=== PATIENT | female | born 1935 | race African-American/Black ===

== ENCOUNTER 2017-06-28 11:00 | Inpatient (IN) | payer MEDICARE, MEDICAID ==
[~2017-06-28] VITALS: Ht 170.2 cm; Wt 59.0 kg
[2017-06-28 11:29] VITALS: BP 121/68
--- NOTE | 2017-06-28 12:34 | Diagnostic Imaging Report ---
Indication: Generalized weakness, multiple falls at home, head trauma Technique: spiral acquisitions obtained through the brain. Angled axial and coronal 5 x 5 mm slices were reconstructed. No IV contrast utilized. Radiation dose was minimized using automated exposure control Total dose length product 1309 mGycm. CTDIvol(s) 70 mGy Comparison: none FINDINGS: No acute hemorrhage or edema. No mass effect or midline shift. There is age-related enlargement of the ventricles and extra axial CSF spaces. There is periventricular deep white matter ischemic change. Normal garcia-white differentiation. Old bilateral basal ganglia lacunar infarcts are demonstrated. Visualized orbits are unremarkable. Visualized sinuses are unremarkable. Intact calvarium. The mastoids are clear IMPRESSION: Chronic and age-related changes. Negative for acute intracranial bleed or mass effect The CT scanner at [facility] is accredited by the [employer] and the scans are performed using protocols designed to limit radiation exposure to as low as reasonably achievable to attain images of sufficient resolution adequate for diagnostic evaluation
[2017-06-28 12:37] LABS: BASOPHILS % (AUTO) 1.4 % (0.0-2.0); EOSINOPHILS % (AUTO) 1.9 % (0.0-3.0); HEMATOCRIT 31.5 % (37.0-47.0); HEMOGLOBIN 9.9 G/DL (12.0-16.0); LYMPHOCYTES % (AUTO) 34.3 % (20.0-45.0); MEAN CORPUSCULAR VOLUME 89 FL (80-99); MONOCYTES % (AUTO) 7.3 % (1.0-10.0); NEUTROPHILS % (AUTO) 55.2 % (45.0-75.0); PLATELET COUNT 318 K/UL (150-450); RED BLOOD COUNT 3.56 M/UL (4.20-5.40); RED CELL DISTRIBUTION WIDTH 13.8 % (11.6-14.8); WHITE BLOOD COUNT 4.8 K/UL (4.8-10.8)
[2017-06-28 12:52] LABS: ANION GAP 6 mmol/L (5-15); BLOOD UREA NITROGEN 21 mg/dL (7-18); CALCIUM 8.2 MG/DL (8.5-10.1); CARBON DIOXIDE 30 MMOL/L (21-32); CHLORIDE 96 MMOL/L (98-107); CREATININE 0.9 MG/DL (0.55-1.30); POTASSIUM 3.8 MMOL/L (3.5-5.1); SODIUM 132 MMOL/L (136-145)
[2017-06-28 13:06] LABS: ALANINE AMINOTRANSFERASE 19 U/L (12-78); ALBUMIN 2.9 G/DL (3.4-5.0); ALBUMIN/GLOBULIN RATIO 0.9 (1.0-2.7); ALKALINE PHOSPHATASE 74 U/L (46-116); ASPARTATE AMINO TRANSFERASE 27 U/L (15-37); BILIRUBIN,TOTAL 0.3 MG/DL (0.2-1.0); CKMB 2.9 NG/ML (0.0-3.6); CREATINE KINASE 172 U/L (26-308)
[2017-06-28 13:50] VITALS: BP 116/56
[2017-06-28 14:12] LABS: APPEARANCE,URINE CLEAR; BILIRUBIN, URINE NEGATIVE (NEGATIVE); COLOR,URINE PALE YELLOW; GLUCOSE, URINE (UA) NEGATIVE (NEGATIVE); KETONES,URINE NEGATIVE (NEGATIVE); LEUKOCYTE ESTERASE ,URINE NEGATIVE (NEGATIVE); NITRITE,URINE NEGATIVE (NEGATIVE); PH,URINE 6 (4.5-8.0); PROTEIN,URINE NEGATIVE (NEGATIVE); UROBILINOGEN,URINE NORMAL MG/DL (0.0-1.0)
--- NOTE | 2017-06-28 15:23 | Emergency Room Report ---
History of Present Illness General Chief Complaint: Multiple Trauma/Fall Source: Patient, Family Member Present Illness HPI Patient is accompanied by her daughter and granddaughter. The patient has had a progressive decline over the past several months. She's had multiple falls. She has been missing her medications at home. The patient lives alone. The daughter states she does try to help care for her but she works and is unable to afford to get her home health nurse. She states that her mom has fallen several times. She states that her living situation is dangerous and that she is disabled. She states that she has no other option and that the primary care physician believes that she needs placement in a assisted facility he needs 24-hour observation and care. They state she is very forgetful. She is also had difficulty with constipation and has had a large amount of weight loss. She did undergo a full workup for colon cancer with a colonoscopy several months ago. Her primary care physician works at [facility] in [place]. Allergies: Coded Allergies: No Known Allergies (Unverified , 06/28/17) Patient History Past Medical History: see triage record, DM, dementia, other - Breast CA Social History: Denies: smoking, alcohol use, drug use Reviewed Nursing Documentation: PMH: Agreed, PSxH: Agreed Nursing Documentation-PMH Past Medical History: No History, Except For Hx Diabetes: Yes Hx Cancer: Yes - right breast CA (lumpectomy) History Of Psychiatric Problem: Yes - dementia Review of Systems All Other Systems: negative except mentioned in HPI Physical Exam Vital Signs Date Time Temp Pulse Resp B/P (MAP) Pulse Ox O2 Delivery O2 Flow Rate FiO2 06/28/17 11:08 98.2 76 18 121/68 100 Room Air Sp02 EP Interpretation: reviewed, normal General Appearance: no apparent distress, alert, GCS 15, non-toxic Head: normocephalic, atraumatic Eyes: bilateral eye normal inspection, bilateral eye PERRL ENT: hearing grossly normal, normal pharynx, no angioedema, normal voice Neck: full range of motion, supple/symm/no masses Respiratory: chest non-tender, lungs clear, normal breath sounds, speaking full sentences Cardiovascular #1: regular rate, rhythm, no edema Gastrointestinal: normal bowel sounds, non tender, soft, non-distended, no guarding, no rebound Rectal: deferred Musculoskeletal: back normal, normal range of motion, non-tender Neurologic: alert, responsive, motor strength/tone normal, sensory intact, speech normal, other - No focal deficits Psychiatric: mood/affect normal, no suicidal/homicidal ideation Skin: normal color, no rash, warm/dry, well hydrated Medical Decision Making Diagnostic Impression: Primary Impression: Gravely disabled Additional Impression: Dementia ER Course This patient is gravely disabled and her family is unable to care for her. She has dementia and is declining. She is forgetting to take her medications and is falling and unable to care for herself. She is being admitted for further evaluation and for possible placement in a assisted facility. I did not identify an emergency medical condition. The patient has a normal laboratory workup and CT of the head. Laboratory Tests Test 06/28/17 12:25 06/28/17 14:00 White Blood Count 4.8 K/UL (4.8-10.8) Red Blood Count 3.56 M/UL (4.20-5.40) L Hemoglobin 9.9 G/DL (12.0-16.0) L Hematocrit 31.5 % (37.0-47.0) L Mean Corpuscular Volume 89 FL (80-99) Mean Corpuscular Hemoglobin 27.9 PG (27.0-31.0) Mean Corpuscular Hemoglobin Concent 31.5 G/DL (32.0-36.0) L Red Cell Distribution Width 13.8 % (11.6-14.8) Platelet Count 318 K/UL (150-450) Mean Platelet Volume 5.9 FL (6.5-10.1) L Neutrophils (%) (Auto) 55.2 % (45.0-75.0) Lymphocytes (%) (Auto) 34.3 % (20.0-45.0) Monocytes (%) (Auto) 7.3 % (1.0-10.0) Eosinophils (%) (Auto) 1.9 % (0.0-3.0) Basophils (%) (Auto) 1.4 % (0.0-2.0) Sodium Level 132 MMOL/L (136-145) L Potassium Level 3.8 MMOL/L (3.5-5.1) Chloride Level 96 MMOL/L (98-107) L Carbon Dioxide Level 30 MMOL/L (21-32) Anion Gap 6 mmol/L (5-15) Blood Urea Nitrogen 21 mg/dL (7-18) H Creatinine 0.9 MG/DL (0.55-1.30) Estimate Glomerular Filtration Rate mL/min (>60) Glucose Level 118 MG/DL (74-106) H Lactic Acid Level 2.20 mmol/L (0.66-2.22) Calcium Level 8.2 MG/DL (8.5-10.1) L Total Bilirubin 0.3 MG/DL (0.2-1.0) Aspartate Amino Transferase (AST) 27 U/L (15-37) Alanine Aminotransferase (ALT) 19 U/L (12-78) Alkaline Phosphatase 74 U/L (46-116) Total Creatine Kinase 172 U/L (26-308) Creatine Kinase MB 2.9 NG/ML (0.0-3.6) Creatine Kinase MB Relative Index 1.6 Troponin I 0.017 ng/mL (0.000-0.056) Total Protein 6.2 G/DL (6.4-8.2) L Albumin 2.9 G/DL (3.4-5.0) L Globulin 3.3 g/dL Albumin/Globulin Ratio 0.9 (1.0-2.7) L Urine Color Pale yellow Urine Appearance Clear Urine pH 6 (4.5-8.0) Urine Specific [place] 1.005 (1.005-1.035) Urine Protein Negative (NEGATIVE) Urine Glucose (UA) Negative (NEGATIVE) Urine Ketones Negative (NEGATIVE) Urine Occult Blood Negative (NEGATIVE) Urine Nitrite Negative (NEGATIVE) Urine Bilirubin Negative (NEGATIVE) Urine Urobilinogen Normal MG/DL (0.0-1.0) Urine Leukocyte Esterase Negative (NEGATIVE) Microbiology Date/Time Source Procedure Growth Status 06/28/17 12:25 Nasal Nares Influenza Types A,B Antigen (VIANNEY) - Final Complete EKG Diagnostic Results Rate: normal Rhythm: NSR ST Segments: no acute changes Rhythm Strip Diag. Results EP Interpretation: yes Rate: 60's Rhythm: NSR, no PVC's, no ectopy Chest X-Ray Diagnostic Results Chest X-Ray Diagnostic Results : Indication: Other Last Vital Signs Date Time Temp Pulse Resp B/P (MAP) Pulse Ox O2 Delivery O2 Flow Rate FiO2 06/28/17 13:50 98.2 87 20 116/56 100 Room Air Disposition: ADMITTED INPATIENT Condition: Stable Referrals: NON PHYSICIAN (PCP) MICHAEL ROBERTS D.O. Jun 28, 2017 15:23
[2017-06-28] MEDS ORDERED: Morphine Sulfate 2mg/ml Inj IVP PRN (15:30)
[2017-06-28] MEDS ORDERED: Mylanta II UD 30ml ORAL PRN (15:30)
[2017-06-28] MEDS ORDERED: COLACE100 MG ORAL (16:03)
[2017-06-28] MEDS ORDERED: TRAMADOL HCL50 MG ORAL (16:03)
[2017-06-28] MEDS ORDERED: FUMARATE (16:03)
[2017-06-28] MEDS ORDERED: [UNRECOGNIZED DRUG - OTHER] MC (16:03)
[2017-06-28] MEDS ORDERED: METFORMIN HCL1000 M1 ORAL (16:03)
[2017-06-28] MEDS ORDERED: FAMOTIDINE20 MG ORAL (16:03)
[2017-06-28] MEDS ORDERED: ACTOS30 MG ORAL (16:03)
[2017-06-28] MEDS ORDERED: ALLOPURINOL300 M1 ORAL (16:03)
[2017-06-28 16:23] VITALS: BP 118/61
[2017-06-28 18:43] VITALS: BP 117/69
--- NOTE | 2017-06-28 19:04 | Consultation ---
History of Present Illness General Date patient seen: Jun 28, 2017 Chief Complaint: Multiple Trauma/Fall Reason for Consultation: inpatient management Present Illness HPI 81 year old female with hx of DM and gout presented to ER accompanied by her daughter with cc of progressive decline over the past several months. She's had multiple falls. She has been missing her medications at home. The daughter states she does try to help care for her but she works and is unable to afford to get her home health nurse. She states that her mom has fallen several times. She states that her living situation is dangerous and that she is disabled. She states that she has no other option and that the primary care physician believes that she needs placement in a [facility] facility he needs 24-hour observation and care. She has constipation and has had a large amount of weight loss. She did undergo a full workup for colon cancer with a colonoscopy several months ago. She is admitted for evaluation of rapid decline. Allergies: Coded Allergies: No Known Allergies (Unverified , 06/28/17) Medication History Scheduled Allopurinol* (Allopurinol*), 300 MG ORAL DAILY, (Reported) Docusate Sodium* (Colace*), 100 MG ORAL DAILY, (Reported) Famotidine (Famotidine), 20 MG ORAL TWICE A DAY, (Reported) Metformin Hcl* (Metformin Hcl*), 1,000 MG ORAL BID, (Reported) Pioglitazone Hcl* (Actos*), 30 MG ORAL DAILY, (Reported) Scheduled PRN Tramadol Hcl* (Ultram*), 50 MG ORAL Q6H PRN for For Pain, (Reported) Miscellaneous Medications Oxybenzone (Oxybenzone), 5 GM MC, (Reported) [fumarate], (Reported) Patient History Healthcare decision maker N Resuscitation status Full Code Advanced Directive on File Past Medical/Surgical History Past Medical/Surgical History: (1) Diabetes mellitus (2) Gout Review of Systems All Other Systems: negative except mentioned in HPI Physical Exam General Appearance: cachetic Lines, tubes and drains: peripheral HEENT: normocephalic, atraumatic Neck: non-tender, normal alignment Respiratory/Chest: chest wall non-tender, lungs clear Breasts: no masses Cardiovascular/Chest: normal peripheral pulses, normal rate Abdomen: non tender Genitourinary/Rectal: normal genital exam Extremities: normal range of motion Skin Exam: normal pigmentation 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 Last 24 Hour Vital Signs Date Time Temp Pulse Resp B/P (MAP) Pulse Ox O2 Delivery O2 Flow Rate FiO2 06/28/17 18:43 Room Air 06/28/17 18:43 97.7 82 20 117/69 98 06/28/17 16:41 98.2 78 20 118/61 100 Room Air 06/28/17 16:23 98.2 78 20 118/61 100 Room Air 06/28/17 13:50 98.2 87 20 116/56 100 Room Air 06/28/17 11:29 98.2 76 18 121/68 100 Room Air 06/28/17 11:08 98.2 76 18 121/68 100 Room Air Laboratory Tests Test 06/28/17 12:25 06/28/17 14:00 White Blood Count 4.8 K/UL (4.8-10.8) Red Blood Count 3.56 M/UL (4.20-5.40) L Hemoglobin 9.9 G/DL (12.0-16.0) L Hematocrit 31.5 % (37.0-47.0) L Mean Corpuscular Volume 89 FL (80-99) Mean Corpuscular Hemoglobin 27.9 PG (27.0-31.0) Mean Corpuscular Hemoglobin Concent 31.5 G/DL (32.0-36.0) L Red Cell Distribution Width 13.8 % (11.6-14.8) Platelet Count 318 K/UL (150-450) Mean Platelet Volume 5.9 FL (6.5-10.1) L Neutrophils (%) (Auto) 55.2 % (45.0-75.0) Lymphocytes (%) (Auto) 34.3 % (20.0-45.0) Monocytes (%) (Auto) 7.3 % (1.0-10.0) Eosinophils (%) (Auto) 1.9 % (0.0-3.0) Basophils (%) (Auto) 1.4 % (0.0-2.0) Sodium Level 132 MMOL/L (136-145) L Potassium Level 3.8 MMOL/L (3.5-5.1) Chloride Level 96 MMOL/L (98-107) L Carbon Dioxide Level 30 MMOL/L (21-32) Anion Gap 6 mmol/L (5-15) Blood Urea Nitrogen 21 mg/dL (7-18) H Creatinine 0.9 MG/DL (0.55-1.30) Estimat Glomerular Filtration Rate mL/min (>60) Glucose Level 118 MG/DL (74-106) H Lactic Acid Level 2.20 mmol/L (0.66-2.22) Calcium Level 8.2 MG/DL (8.5-10.1) L Total Bilirubin 0.3 MG/DL (0.2-1.0) Aspartate Amino Transf (AST/SGOT) 27 U/L (15-37) Alanine Aminotransferase (ALT/SGPT) 19 U/L (12-78) Alkaline Phosphatase 74 U/L (46-116) Total Creatine Kinase 172 U/L (26-308) Creatine Kinase MB 2.9 NG/ML (0.0-3.6) Creatine Kinase MB Relative Index 1.6 Troponin I 0.017 ng/mL (0.000-0.056) Total Protein 6.2 G/DL (6.4-8.2) L Albumin 2.9 G/DL (3.4-5.0) L Globulin 3.3 g/dL Albumin/Globulin Ratio 0.9 (1.0-2.7) L Urine Color Pale yellow Urine Appearance Clear Urine pH 6 (4.5-8.0) Urine Specific [place] 1.005 (1.005-1.035) Urine Protein Negative (NEGATIVE) Urine Glucose (UA) Negative (NEGATIVE) Urine Ketones Negative (NEGATIVE) Urine Occult Blood Negative (NEGATIVE) Urine Nitrite Negative (NEGATIVE) Urine Bilirubin Negative (NEGATIVE) Urine Urobilinogen Normal MG/DL (0.0-1.0) Urine Leukocyte Esterase Negative (NEGATIVE) Microbiology Date/Time Source Procedure Growth Status 06/28/17 12:25 Nasal Nares Influenza Types A,B Antigen (VIANNEY) - Final Complete Height (Feet): 5 Height (Inches): 7.00 Weight (Pounds): 130 Medications Current Medications Medications (Trade) Dose Ordered Sig/Priyanka Route PRN Reason Start Time Stop Time Status Last Admin Dose Admin Acetaminophen (Tylenol) 650 mg Q4H PRN ORAL fever 06/28/17 15:30 07/28/17 15:29 Al Hydroxide/Mg Hydroxide (Mylanta II) 30 ml Q6H PRN ORAL dyspepsia 06/28/17 15:30 07/28/17 15:29 Allopurinol (Allopurinol) 300 mg DAILY ORAL 06/29/17 09:00 07/29/17 08:59 Dextrose (Dextrose 50%) STAT PRN IV Hypoglycemia 06/28/17 15:30 07/28/17 15:29 Docusate Sodium (Colace) 100 mg DAILY ORAL 06/29/17 09:00 07/29/17 08:59 Famotidine (Pepcid) 20 mg BID ORAL 06/29/17 09:00 07/29/17 08:59 Heparin Sodium (Porcine) (Heparin 5000 units/ml) 5,000 units EVERY 12 HOURS SUBQ 06/28/17 21:00 07/28/17 20:59 Lorazepam (Ativan 2mg/ml 1ml) 0.5 mg Q4H PRN IV For Anxiety 06/28/17 15:30 07/05/17 15:29 Morphine Sulfate (Morphine Sulfate) 1 mg Q4H PRN IVP Severe Pain (Pain Scale 7-10) 06/28/17 15:30 07/05/17 15:29 Ondansetron HCl (Zofran) 4 mg Q6H PRN IVP Nausea & Vomiting 06/28/17 15:30 07/28/17 15:29 Pioglitazone HCl (Actos) 30 mg ACBREAKFAST ORAL 06/29/17 06:30 07/29/17 06:29 Pneumococcal Polyvalent Vaccine (Pneumovax) 0.5 ml ONCE ONCE IM 06/28/17 20:30 06/28/17 20:31 UNV Polyethylene Glycol (Miralax) 17 gm HSPRN PRN ORAL Constipation 06/28/17 21:00 07/28/17 20:59 Zolpidem Tartrate (Ambien) 5 mg HSPRN PRN ORAL Insomnia 06/28/17 21:00 07/05/17 20:59 Assessment/Plan Problem List: (1) Failure to thrive SNOMED: 65686523 (2) Severe protein-calorie malnutrition ICD Codes: E43 - Unspecified severe protein-calorie malnutrition SNOMED: 570513087 (3) Dementia ICD Codes: F03.90 - Unspecified dementia without behavioral disturbance SNOMED: 11253542 (4) Diabetes mellitus ICD Codes: E11.9 - Type 2 diabetes mellitus without complications SNOMED: 43806399 (5) Gout ICD Codes: M10.9 - Gout, unspecified SNOMED: 42454370 Assessment/Plan neuro evaluation psych evaluation calorie count social service evaluation dvt prophylaxis pt/ot JULIANN RIOJAS Jun 28, 2017 19:04
[2017-06-28 20:06] VITALS: BP 118/70
[2017-06-28] MEDS ORDERED: Miralax 17gm pkt ORAL PRN (21:00)
[2017-06-28] MEDS: NovoLOG Insulin Flexpen SUBQ SCH (21:00)
[2017-06-28] MEDS ORDERED: Zolpidem 5mg tab ORAL PRN (21:00)
[2017-06-28] MEDS ORDERED: Pneumococcal Vaccine 25mcg/0.5ml IM ONE (21:00)
[2017-06-28] MEDS: Heparin 5000 units/ml inj SUBQ SCH (22:05)
[2017-06-29 00:51] VITALS: BP 120/71
[2017-06-29 04:00] VITALS: BP 112/54
[2017-06-29] MEDS: NovoLOG Insulin Flexpen SUBQ SCH ×4 (06:03→20:48)
[2017-06-29 07:37] LABS: BASOPHILS % (AUTO) 1.1 % (0.0-2.0); EOSINOPHILS % (AUTO) 2.5 % (0.0-3.0); HEMATOCRIT 31.8 % (37.0-47.0); HEMOGLOBIN 9.9 G/DL (12.0-16.0); LYMPHOCYTES % (AUTO) 22.6 % (20.0-45.0); MEAN CORPUSCULAR VOLUME 90 FL (80-99); MONOCYTES % (AUTO) 7.5 % (1.0-10.0); NEUTROPHILS % (AUTO) 66.4 % (45.0-75.0); PLATELET COUNT 312 K/UL (150-450); RED BLOOD COUNT 3.54 M/UL (4.20-5.40); RED CELL DISTRIBUTION WIDTH 14.1 % (11.6-14.8)
[2017-06-29 08:00] VITALS: BP 128/72
[2017-06-29 08:23] LABS: ALANINE AMINOTRANSFERASE 20 U/L (12-78); ALBUMIN 2.7 G/DL (3.4-5.0); ALBUMIN/GLOBULIN RATIO 0.9 (1.0-2.7); ALKALINE PHOSPHATASE 78 U/L (46-116); ANION GAP 6 mmol/L (5-15); ASPARTATE AMINO TRANSFERASE 23 U/L (15-37); BILIRUBIN,TOTAL 0.3 MG/DL (0.2-1.0); BLOOD UREA NITROGEN 20 mg/dL (7-18); CALCIUM 7.8 MG/DL (8.5-10.1); CARBON DIOXIDE 30 MMOL/L (21-32); CHLORIDE 99 MMOL/L (98-107); CHOLESTEROL 137 MG/DL (< 200); CREATININE 0.7 MG/DL (0.55-1.30); HDL CHOLESTEROL 64 MG/DL (40-60); POTASSIUM 3.3 MMOL/L (3.5-5.1); SODIUM 135 MMOL/L (136-145); TRIGLYCERIDES 43 MG/DL (30-150)
[2017-06-29] MEDS: Docusate 100mg cap ORAL SCH (10:11)
[2017-06-29] MEDS: Heparin 5000 units/ml inj SUBQ SCH ×2 (10:12→20:49)
[2017-06-29] MEDS: LORazepam Inj 2mg/ml 1ml IV PRN (10:54)
--- NOTE | 2017-06-29 11:07 | Consultation ---
Consult Note Consult Note job#[id number] Oneal Schmitz M.D. Jun 29, 2017 11:07
[2017-06-29 11:36] VITALS: BP 112/60
--- NOTE | 2017-06-29 12:38 | Neurology Progress Note ---
Objective Physical Exam Last Vital Signs Date Time Temp Pulse Resp B/P (MAP) Pulse Ox O2 Delivery O2 Flow Rate FiO2 06/29/17 11:36 97.3 70 20 112/60 98 06/29/17 08:00 Room Air Laboratory Tests Test 06/28/17 14:00 06/29/17 06:10 Urine Color Pale yellow Urine Appearance Clear Urine pH 6 (4.5-8.0) Urine Specific [place] 1.005 (1.005-1.035) Urine Protein Negative (NEGATIVE) Urine Glucose (UA) Negative (NEGATIVE) Urine Ketones Negative (NEGATIVE) Urine Occult Blood Negative (NEGATIVE) Urine Nitrite Negative (NEGATIVE) Urine Bilirubin Negative (NEGATIVE) Urine Urobilinogen Normal MG/DL (0.0-1.0) Urine Leukocyte Esterase Negative (NEGATIVE) White Blood Count 4.0 K/UL (4.8-10.8) L Red Blood Count 3.54 M/UL (4.20-5.40) L Hemoglobin 9.9 G/DL (12.0-16.0) L Hematocrit 31.8 % (37.0-47.0) L Mean Corpuscular Volume 90 FL (80-99) Mean Corpuscular Hemoglobin 28.0 PG (27.0-31.0) Mean Corpuscular Hemoglobin Concent 31.2 G/DL (32.0-36.0) L Red Cell Distribution Width 14.1 % (11.6-14.8) Platelet Count 312 K/UL (150-450) Mean Platelet Volume 5.6 FL (6.5-10.1) L Neutrophils (%) (Auto) 66.4 % (45.0-75.0) Lymphocytes (%) (Auto) 22.6 % (20.0-45.0) Monocytes (%) (Auto) 7.5 % (1.0-10.0) Eosinophils (%) (Auto) 2.5 % (0.0-3.0) Basophils (%) (Auto) 1.1 % (0.0-2.0) Sodium Level 135 MMOL/L (136-145) L Potassium Level 3.3 MMOL/L (3.5-5.1) L Chloride Level 99 MMOL/L (98-107) Carbon Dioxide Level 30 MMOL/L (21-32) Anion Gap 6 mmol/L (5-15) Blood Urea Nitrogen 20 mg/dL (7-18) H Creatinine 0.7 MG/DL (0.55-1.30) Estimat Glomerular Filtration Rate mL/min (>60) Glucose Level 169 MG/DL (74-106) H Hemoglobin A1c 6.0 % (4.3-6.0) Calcium Level 7.8 MG/DL (8.5-10.1) L Total Bilirubin 0.3 MG/DL (0.2-1.0) Aspartate Amino Transf (AST/SGOT) 23 U/L (15-37) Alanine Aminotransferase (ALT/SGPT) 20 U/L (12-78) Alkaline Phosphatase 78 U/L (46-116) Total Protein 5.8 G/DL (6.4-8.2) L Albumin 2.7 G/DL (3.4-5.0) L Globulin 3.1 g/dL Albumin/Globulin Ratio 0.9 (1.0-2.7) L Triglycerides Level 43 MG/DL (30-150) Cholesterol Level 137 MG/DL (< 200) LDL Cholesterol 69 mg/dL (<100) HDL Cholesterol 64 MG/DL (40-60) H Cholesterol/HDL Ratio 2.1 (3.3-4.4) L Thyroid Stimulating Hormone (TSH) 3.959 uiU/mL (0.358-3.740) Impression/Recommendations Recommendations #[id number] MADDISON DUFFY Jun 29, 2017 12:38
--- NOTE | 2017-06-29 15:45 | Consultation ---
DATE OF CONSULTATION: 06/28/2017 PSYCHIATRIC CONSULTATION CONSULTING PHYSICIAN: Oneal Schmitz M.D. ATTENDING PHYSICIAN: Andrade Calloway D.O. HISTORY OF PRESENT ILLNESS: The patient is an 81-year-old female with a history of dementia, agitation, and mood disorder, who has been admitted to the hospital for multiple trauma status post fall. The patient is yelling, screaming, agitated, not following direction. She is also paranoid. She is confused and is unable to provide any history. She is only yelling and at times 00:39. The patient is having impairment in concentration, memory, and attention. No insight or judgment. PAST PSYCHIATRIC HISTORY: The patient has a history of dementia, mood disorder. Agitation has been treated with antipsychotics in the past as well as Ativan. MEDICAL HISTORY: She has a history of right breast cancer with lumpectomy. ALLERGIES: No known drug allergies. SUBSTANCE ABUSE HISTORY: No known history of illicit drug use or alcohol. MENTAL STATUS EXAMINATION: The patient is alert and oriented times self and is not able to provide any history, not engaged, and uncooperative. There is psychomotor agitation. She is loud and screaming. Mood is angry. Affect is blunted, congruent with mood. Thought process is disorganized. Thought content positive for delusions. Insight and judgment nonexistent. ASSESSMENT: AXIS I Dementia with behavioral disturbance and agitation. AXIS II Deferred. AXIS III Failure to thrive and grave disability. PLAN: 1. The patient will be started on Depakote 500 mg b.i.d., which also stimulates her appetite as well as assists her mood disorder and agitation. 2. We will have the Ativan IV for breakthrough agitation. Oneal Schmitz M.D. DR: LANCE JOB#: [id number] CC:
[2017-06-29 16:00] VITALS: BP 119/64
--- NOTE | 2017-06-29 19:30 | Consultation ---
DATE OF CONSULTATION: 06/29/2017 NEUROLOGICAL CONSULTATION CONSULTING PHYSICIAN: Chacorta Coats M.D. ATTENDING/REQUESTING PHYSICIAN: Andrade Calloway D.O. HISTORY OF PRESENT ILLNESS: This is an 81-year-old female seen in neurological consultation to evaluate the presence of cognitive loss, abnormal gait. The patient is not sure why she is in the hospital. Information was obtained from medical records. Note that she was brought to emergency room by her daughter and granddaughters, who described the patient having progressive cognitive and physical decline in the last few months, developed unsteady gait, and had multiple falls while using walker. She also described as missing her medications at home. She became quite forgetful. In addition, she developed weight loss, complaining of constipation. Recent workup for colon CA with colonoscopy revealed no malignancies. Her workup was performed at [facility]. On arrival, vital signs were stable. She was afebrile. Her EKG with normal sinus rhythm. No PVCs. No ectopies. Her imaging studies included CT scan of the brain, which revealed old bilateral basal ganglia lacunar infarcts, evidence of chronic and age-related changes. Laboratory work revealed mild anemia, hemoglobin 9.9 and hematocrit 31.5. Chemistry panel with sodium 132, blood sugar 118, low total protein of 6.2, and albumin 2.9. Unremarkable lipid panel but TSH of 3.959. Urinalysis was normal. Following admission to [facility], her condition remained essentially unchanged. PAST MEDICAL HISTORY: History of diabetes, she had lumpectomy for right breast cancer, arthritis and using walker. MEDICATIONS: Her treatment prior to admission included allopurinol, famotidine, metformin, oxybenzone, Actos, and Ultram. ALLERGIES: None reported. FAMILY HISTORY: Noncontributory. SOCIAL HISTORY: The patient apparently lives until present alone but obviously represented a danger to herself and was unable to take care of herself. PHYSICAL EXAMINATION: GENERAL: A well-developed, somewhat cachectic, elderly female, found to be lying in bed, comfortably. VITAL SIGNS: Stable. Blood pressure 112/60 and temperature 97.3. HEAD: Normocephalic. No evidence of trauma. Eyes, ears, nose, and throat are clear. NECK: Supple. No meningeal signs. MUSCULOSKELETAL: Unremarkable. No deformities except some arthritic changes in both knees. Peripheral pulses 1+, symmetric. MENTAL STATUS: The patient is alert and oriented to her name and age, but not time and place. She was able to recall names of her children, her address. She was able to recall only 1 out of 3 words in 3 minutes, unable to recall the name of the President of [employer] currently. She was pleasant, cooperative, and followed command. CRANIAL NERVE II: Pupils both responding to light and accommodation. Extraocular movements intact. No nystagmus. CRANIAL NERVE V: Normal corneal responses. CRANIAL NERVE VII: No facial asymmetry. CRANIAL NERVE VIII: Decreased hearing bilaterally. CRANIAL NERVES IX THROUGH XII: Tongue is in midline. Symmetric palate elevation. MOTOR: Revealed normal muscle tone. Strength appears normal, 5/5. She was able to lift arms and legs against gravity. Deep tendon reflexes 1+, bilaterally symmetric. Plantar responses flexor. SENSORY: Normal to pinprick and light touch. Gait not tested but reported by the personnel as being able to ambulate slowly using walker. IMPRESSION: 1. 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 2. Failure to thrive. 3. Diabetes type 2. 4. History of breast cancer. RECOMMENDATION: The patient is not capable of staying alone in her apartment. She represents a danger to herself being unable to provide with all activities of daily living, combined with abnormal judgment, cognitive loss. It is appropriate for the patient to be placed to nursing facility for [id number] care. In presence of previous strokes, the patient to start on aspirin 81 mg daily. Maintain proper blood sugar control and start on appropriate nutrition. Thank you for allowing me to see this interesting patient in neurological consultation. Chacorta Coats M.D. DR: SIM JOB#: [id number] CC:
[2017-06-29 20:00] VITALS: BP 108/63
--- NOTE | 2017-06-29 20:25 | Pulmonology Progress Note ---
Assessment/Plan Problems: (1) Failure to thrive (2) Severe protein-calorie malnutrition (3) Dementia (4) Diabetes mellitus (5) Gout Assessment/Plan all noted' psych and neuro consult appreciated pt/ot evaluation sliding scale check electrolytes symptomatic treatment. Subjective ROS Limited/Unobtainable: No Interval Events: no new complains, Allergies: Coded Allergies: No Known Allergies (Unverified , 06/28/17) Objective Last 24 Hour Vital Signs Date Time Temp Pulse Resp B/P (MAP) Pulse Ox O2 Delivery O2 Flow Rate FiO2 06/29/17 16:00 97.6 71 20 119/64 97 06/29/17 11:36 97.3 70 20 112/60 98 06/29/17 08:00 97.8 78 20 128/72 100 Room Air 06/29/17 04:00 96 Room Air 06/29/17 04:00 98.2 74 20 112/54 96 Room Air 06/29/17 01:11 100 Room Air 06/29/17 00:51 97.3 78 20 120/71 100 Room Air Intake and Output 06/28/17 06/29/17 19:00 07:00 Intake Total 180 ml Balance 180 ml Intake Oral 180 ml # Voids 2 4 # Bowel Movements 1 1 Objective General Appearance: cachetic Lines, tubes and drains: peripheral HEENT: normocephalic, atraumatic Neck: non-tender, normal alignment Respiratory/Chest: chest wall non-tender, lungs clear Breasts: no masses Cardiovascular/Chest: normal peripheral pulses, normal rate Abdomen: non tender Genitourinary/Rectal: normal genital exam Extremities: normal range of motion Skin Exam: normal pigmentation 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 Microbiology Date/Time Source Procedure Growth Status 06/28/17 12:25 Nasal Nares Influenza Types A,B Antigen (VIANNEY) - Final Complete Laboratory Tests 06/29/17 06:10: White Blood Count 4.0L, Red Blood Count 3.54L, Hemoglobin 9.9L, Hematocrit 31.8L , Mean Corpuscular Volume 90, Mean Corpuscular Hemoglobin 28.0, Mean Corpuscular Hemoglobin Concent 31.2L, Red Cell Distribution Width 14.1, Platelet Count 312, Mean Platelet Volume 5.6L, Neutrophils (%) (Auto) 66.4, Lymphocytes (%) (Auto) 22.6, Monocytes (%) (Auto) 7.5, Eosinophils (%) (Auto) 2.5, Basophils (%) (Auto) 1.1, Sodium Level 135L, Potassium Level 3.3L, Chloride Level 99, Carbon Dioxide Level 30, Anion Gap 6, Blood Urea Nitrogen 20H , Creatinine 0.7, Estimat Glomerular Filtration Rate , Glucose Level 169H, Hemoglobin A1c 6.0, Calcium Level 7.8L, Total Bilirubin 0.3, Aspartate Amino Transf (AST/SGOT) 23, Alanine Aminotransferase (ALT/SGPT) 20, Alkaline Phosphatase 78, Total Protein 5.8L, Albumin 2.7L, Globulin 3.1, Albumin/ Globulin Ratio 0.9L, Triglycerides Level 43, Cholesterol Level 137, LDL Cholesterol 69, HDL Cholesterol 64H, Cholesterol/HDL Ratio 2.1L, Thyroid Stimulating Hormone (TSH) 3.959H Current Medications Medications (Trade) Dose Ordered Sig/Priyanka Route PRN Reason Start Time Stop Time Status Last Admin Dose Admin Acetaminophen (Tylenol) 650 mg Q4H PRN ORAL fever 06/28/17 15:30 07/28/17 15:29 Al Hydroxide/Mg Hydroxide (Mylanta II) 30 ml Q6H PRN ORAL dyspepsia 06/28/17 15:30 07/28/17 15:29 Allopurinol (Allopurinol) 300 mg DAILY ORAL 06/29/17 09:00 07/29/17 08:59 Dextrose (Dextrose 50%) STAT PRN IV Hypoglycemia 06/28/17 20:30 07/28/17 20:29 Divalproex Sodium (Depakote) 500 mg EVERY 12 HOURS ORAL 06/29/17 21:00 07/29/17 20:59 Docusate Sodium (Colace) 100 mg DAILY ORAL 06/29/17 09:00 07/29/17 08:59 06/29/17 10:11 Famotidine (Pepcid) 20 mg BID ORAL 06/29/17 09:00 07/29/17 08:59 06/29/17 18:31 Heparin Sodium (Porcine) (Heparin 5000 units/ml) 5,000 units EVERY 12 HOURS SUBQ 06/28/17 21:00 07/28/17 20:59 06/29/17 10:12 Insulin Aspart (NovoLOG) BEFORE MEALS AND HS SUBQ 06/28/17 21:00 07/28/17 20:59 Lorazepam (Ativan 2mg/ml 1ml) 0.5 mg Q4H PRN IV For Anxiety 06/28/17 15:30 07/05/17 15:29 06/29/17 10:54 Morphine Sulfate (Morphine Sulfate) 1 mg Q4H PRN IVP Severe Pain (Pain Scale 7-10) 06/28/17 15:30 07/05/17 15:29 Ondansetron HCl (Zofran) 4 mg Q6H PRN IVP Nausea & Vomiting 06/28/17 15:30 07/28/17 15:29 Pioglitazone HCl (Actos) 30 mg ACBREAKFAST ORAL 06/29/17 06:30 07/29/17 06:29 Polyethylene Glycol (Miralax) 17 gm HSPRN PRN ORAL Constipation 06/28/17 21:00 07/28/17 20:59 Sodium Chloride 1,000 ml @ 50 mls/hr Q20H IV 06/29/17 16:00 07/29/17 15:59 06/29/17 16:50 Zolpidem Tartrate (Ambien) 5 mg HSPRN PRN ORAL Insomnia 06/28/17 21:00 07/05/17 20:59 JULIANN RIOJAS Jun 29, 2017 20:25
--- NOTE | 2017-06-29 20:30 | Progress Note ---
DATE: 06/29/2017 SUBJECTIVE: The patient continues to be yelling, agitated, and uncooperative with the staff. The patient is not following staff's directions. She is paranoid and makes nonsensical statements. MENTAL STATUS EXAMINATION: The patient is alert and oriented times self. Mood is agitated. Affect is constricted, congruent with mood. Thought process is concrete. Thought content, no suicidal or homicidal ideations. Positive for delusions. Insight and judgment are impaired. Cognition is impaired. ASSESSMENT: Dementia with behavior disturbance, rule out mood disorder. PLAN: 1. We will continue the Depakote p.o. 500 mg b.i.d. 2. Ativan IV. 3. Provide the patient with supportive therapy and reality orientation. Oneal Schmitz M.D. DR: TABITHA JOB#: [id number] CC:
[2017-06-29] MEDS: Depakote 500mg tab ORAL SCH (20:48)
--- NOTE | 2017-06-29 23:30 | History and Physical Report ---
DATE OF ADMISSION: 06/28/2017 TIME SEEN: At 2 p.m. CONSULTANTS: 1. Chacorta Coats M.D. 2. Nolan Cole M.D. 3. Tashi Trivedi M.D. CHIEF COMPLAINT: Failure to thrive, weakness, fall, edema, and possible needing placement. BRIEF HISTORY: This is an 81-year-old female who lives at home by herself. Daughter brought her into [facility] for progressive weakness x2 weeks and failure to thrive. Also she is not able to care for her. Currently, calm in bed, slightly confused, not talking much. REVIEW OF SYSTEMS: Unavailable. PAST MEDICAL HISTORY: Includes failure to thrive, diabetes, edema, breast cancer, and frequent falls. PAST SURGICAL HISTORY: Breast surgery. MEDICATIONS: Include Depakote, K-Dur, allopurinol, Colace, Pepcid, Actos, Ambien, heparin, MiraLAX, NovoLog, Tylenol, morphine, Zofran, and Ativan. ALLERGIES: Denies. SOCIAL HISTORY: No smoking, no alcohol, and no intravenous drug abuse. FAMILY HISTORY: Noncontributory. PHYSICAL EXAMINATION: GENERAL: Calm in bed, oriented x2, in no acute distress. VITAL SIGNS: Temperature is 97, pulse , respirations 20, and blood pressure 112/60. CARDIOVASCULAR: No murmur. LUNGS: Distant and clear. ABDOMEN: Positive bowel sounds. Nontender. Nondistended. EXTREMITIES: No cyanosis, clubbing, or edema. NEUROLOGIC: The patient moves all extremities. Slightly weak. LABORATORY DATA: Labs at this time show hemoglobin 9.9, otherwise CBC is normal. Sodium 135, potassium 3.3, chloride , and glucose 169. Albumin 3.7. Urinalysis is negative. ASSESSMENT: 1. Failure to thrive. 2. Weakness. 3. Diabetes. 4. Malnutrition. 5. Frequent falls. 6. Anemia. 7. Edema. 8. Breast cancer. PLAN: 1. Continue previous medications. 2. OT, PT, and dietary followup. 3. Blood sugar control. 4. Resume home medications. 5. Dr. Coats, Dr. Cole, and Dr. Trivedi to consult. 6. CBC and BMP in the morning. Andrade Calloway D.O. DR: ANTOLIN JOB#: [id number] CC:
[2017-06-30] VITALS: BP 110/57
[2017-06-30 04:16] VITALS: BP 140/59
[2017-06-30] MEDS: NovoLOG Insulin Flexpen SUBQ SCH ×4 (05:49→20:36)
[2017-06-30 07:44] LABS: BASOPHILS % (AUTO) 1.4 % (0.0-2.0); EOSINOPHILS % (AUTO) 1.9 % (0.0-3.0); HEMATOCRIT 32.4 % (37.0-47.0); HEMOGLOBIN 10.5 G/DL (12.0-16.0); LYMPHOCYTES % (AUTO) 36.8 % (20.0-45.0); MEAN CORPUSCULAR VOLUME 89 FL (80-99); MONOCYTES % (AUTO) 9.2 % (1.0-10.0); NEUTROPHILS % (AUTO) 50.6 % (45.0-75.0); PLATELET COUNT 346 K/UL (150-450); RED BLOOD COUNT 3.64 M/UL (4.20-5.40); WHITE BLOOD COUNT 4.1 K/UL (4.8-10.8)
[2017-06-30 08:00] VITALS: BP 108/44
[2017-06-30 08:04] LABS: ANION GAP 5 mmol/L (5-15); BLOOD UREA NITROGEN 12 mg/dL (7-18); CALCIUM 8.5 MG/DL (8.5-10.1); CARBON DIOXIDE 29 MMOL/L (21-32); CHLORIDE 98 MMOL/L (98-107); CREATININE 0.6 MG/DL (0.55-1.30); POTASSIUM 4.2 MMOL/L (3.5-5.1); SODIUM 132 MMOL/L (136-145)
[2017-06-30] MEDS: Heparin 5000 units/ml inj SUBQ SCH ×2 (08:46→20:36)
[2017-06-30] MEDS: LORazepam Inj 2mg/ml 1ml IV PRN (08:47)
[2017-06-30] MEDS: Depakote 500mg tab ORAL SCH ×2 (08:48→20:35)
[2017-06-30] MEDS: Docusate 100mg cap ORAL SCH (08:48)
--- NOTE | 2017-06-30 09:24 | Pulmonology Progress Note ---
Assessment/Plan Assessment/Plan ASSESSMENT Functional decline mild dehydration recurrent falls protein calorie malnutrition dementia anemia DM hypokalemia hypomagnesemia R breast Ca, s/p lumpectomy Elevated TSH with normal free T 4 - subclinical hypothyroidism PLAN OF CARE MS floor gentle IVF neuro and psych eval CT head no acute IC pathology Fall precautions PT/OT/ST dietary eval, check pre-albumin calorie count BS management with Actos and SSI prn HgA1c -6.0 at goal Monitor HH, stable, with some trend up DVT/GI prophylaxis bowel regimen replace Mg CM to arrange SNF repeat thyroid panel in 4-6 weeks case discussed and evaluated by supervising physician Subjective Allergies: Coded Allergies: No Known Allergies (Unverified , 06/28/17) Subjective denies chest pain, SOB, no signs of distress confused Mg-1.2 Objective Last 24 Hour Vital Signs Date Time Temp Pulse Resp B/P (MAP) Pulse Ox O2 Delivery O2 Flow Rate FiO2 06/30/17 04:16 98 Room Air 06/30/17 04:16 97.8 72 18 140/59 98 Room Air 06/30/17 00:00 97.9 70 20 110/57 100 Room Air 06/29/17 20:00 98 Room Air 06/29/17 20:00 98.3 74 20 108/63 98 Room Air 06/29/17 16:00 97.6 71 20 119/64 97 06/29/17 11:36 97.3 70 20 112/60 98 Intake and Output 06/29/17 06/30/17 19:00 07:00 Intake Total 680 ml Output Total 300 ml Balance 680 ml -300 ml Intake Oral 580 ml IV Total 100 ml Output Urine Total 300 ml # Bowel Movements 2 3 General Appearance: no acute distress, other - thin elderly AA female in NAD HEENT: normocephalic, atraumatic, anicteric, mucous membranes moist Respiratory/Chest: lungs clear - with moderate air exchange Cardiovascular: normal peripheral pulses, normal rate, no JVD Neurologic/Psychiatric: abnormal gait, alert, responsive Musculoskeletal: atrophy - BLE Microbiology Date/Time Source Procedure Growth Status 06/28/17 12:25 Nasal Nares Influenza Types A,B Antigen (VIANNEY) - Final Complete Laboratory Tests 06/30/17 04:40: White Blood Count 4.1L, Red Blood Count 3.64L, Hemoglobin 10.5L, Hematocrit 32.4L, Mean Corpuscular Volume 89, Mean Corpuscular Hemoglobin 28.8, Mean Corpuscular Hemoglobin Concent 32.3, Red Cell Distribution Width 14.0, Platelet Count 346, Mean Platelet Volume 6.1L, Neutrophils (%) (Auto) 50.6, Lymphocytes ( %) (Auto) 36.8, Monocytes (%) (Auto) 9.2, Eosinophils (%) (Auto) 1.9, Basophils (%) (Auto) 1.4, Sodium Level 132L, Potassium Level 4.2, Chloride Level 98, Carbon Dioxide Level 29, Anion Gap 5, Blood Urea Nitrogen 12, Creatinine 0.6, Estimat Glomerular Filtration Rate , Glucose Level 96, Calcium Level 8.5, Magnesium Level 1.2L, Prealbumin [Pending], Free Thyroxine 1.16 Current Medications Medications (Trade) Dose Ordered Sig/Priyanka Route PRN Reason Start Time Stop Time Status Last Admin Dose Admin Acetaminophen (Tylenol) 650 mg Q4H PRN ORAL fever 06/28/17 15:30 07/28/17 15:29 Al Hydroxide/Mg Hydroxide (Mylanta II) 30 ml Q6H PRN ORAL dyspepsia 06/28/17 15:30 07/28/17 15:29 Allopurinol (Allopurinol) 300 mg DAILY ORAL 06/29/17 09:00 07/29/17 08:59 06/30/17 08:48 Dextrose (Dextrose 50%) STAT PRN IV Hypoglycemia 06/28/17 20:30 07/28/17 20:29 Divalproex Sodium (Depakote) 500 mg EVERY 12 HOURS ORAL 06/29/17 21:00 07/29/17 20:59 06/30/17 08:48 Docusate Sodium (Colace) 100 mg DAILY ORAL 06/29/17 09:00 07/29/17 08:59 06/30/17 08:48 Famotidine (Pepcid) 20 mg BID ORAL 06/29/17 09:00 07/29/17 08:59 06/30/17 08:48 Heparin Sodium (Porcine) (Heparin 5000 units/ml) 5,000 units EVERY 12 HOURS SUBQ 06/28/17 21:00 07/28/17 20:59 06/30/17 08:46 Insulin Aspart (NovoLOG) BEFORE MEALS AND HS SUBQ 06/28/17 21:00 07/28/17 20:59 Lorazepam (Ativan 2mg/ml 1ml) 0.5 mg Q4H PRN IV For Anxiety 06/28/17 15:30 07/05/17 15:29 06/30/17 08:47 Morphine Sulfate (Morphine Sulfate) 1 mg Q4H PRN IVP Severe Pain (Pain Scale 7-10) 06/28/17 15:30 07/05/17 15:29 Ondansetron HCl (Zofran) 4 mg Q6H PRN IVP Nausea & Vomiting 06/28/17 15:30 07/28/17 15:29 Pioglitazone HCl (Actos) 30 mg ACBREAKFAST ORAL 06/29/17 06:30 07/29/17 06:29 06/30/17 05:49 Polyethylene Glycol (Miralax) 17 gm HSPRN PRN ORAL Constipation 06/28/17 21:00 07/28/17 20:59 Sodium Chloride 1,000 ml @ 50 mls/hr Q20H IV 06/29/17 16:00 07/29/17 15:59 06/29/17 16:50 Zolpidem Tartrate (Ambien) 5 mg HSPRN PRN ORAL Insomnia 06/28/17 21:00 07/05/17 20:59 Mariana Mahajan NP (Vanchtein) Jun 30, 2017 09:24
[2017-06-30 12:00] VITALS: BP 120/60
--- NOTE | 2017-06-30 14:14 | General Progress Note ---
Assessment/Plan Problem List: (1) Dementia ICD Codes: F03.90 - Unspecified dementia without behavioral disturbance SNOMED: 38926804 (2) Gravely disabled SNOMED: 051766172 (3) Diabetes mellitus ICD Codes: E11.9 - Type 2 diabetes mellitus without complications SNOMED: 39662295 (4) Gout ICD Codes: M10.9 - Gout, unspecified SNOMED: 70328640 (5) Failure to thrive SNOMED: 25682219 (6) Severe protein-calorie malnutrition ICD Codes: E43 - Unspecified severe protein-calorie malnutrition SNOMED: 594879304 Status: stable, progressing, tolerating diet Assessment/Plan ot pt diet bs control cbc bmp am Subjective Constitutional: Reports: weakness Allergies: Coded Allergies: No Known Allergies (Unverified , 06/28/17) All Systems: reviewed and negative except above Subjective calm in b ed Objective Last 24 Hour Vital Signs Date Time Temp Pulse Resp B/P (MAP) Pulse Ox O2 Delivery O2 Flow Rate FiO2 06/30/17 12:00 97.6 68 20 120/60 94 06/30/17 08:00 97.7 73 19 108/44 98 Room Air 06/30/17 04:16 98 Room Air 06/30/17 04:16 97.8 72 18 140/59 98 Room Air 06/30/17 00:00 97.9 70 20 110/57 100 Room Air 06/29/17 20:00 98 Room Air 06/29/17 20:00 98.3 74 20 108/63 98 Room Air 06/29/17 16:00 97.6 71 20 119/64 97 Intake and Output 06/29/17 06/30/17 19:00 07:00 Intake Total 680 ml Output Total 300 ml Balance 680 ml -300 ml Intake Oral 580 ml IV Total 100 ml Output Urine Total 300 ml # Bowel Movements 2 3 Laboratory Tests 06/30/17 04:40: White Blood Count 4.1L, Red Blood Count 3.64L, Hemoglobin 10.5L, Hematocrit 32.4L, Mean Corpuscular Volume 89, Mean Corpuscular Hemoglobin 28.8, Mean Corpuscular Hemoglobin Concent 32.3, Red Cell Distribution Width 14.0, Platelet Count 346, Mean Platelet Volume 6.1L, Neutrophils (%) (Auto) 50.6, Lymphocytes ( %) (Auto) 36.8, Monocytes (%) (Auto) 9.2, Eosinophils (%) (Auto) 1.9, Basophils (%) (Auto) 1.4, Sodium Level 132L, Potassium Level 4.2, Chloride Level 98, Carbon Dioxide Level 29, Anion Gap 5, Blood Urea Nitrogen 12, Creatinine 0.6, Estimat Glomerular Filtration Rate , Glucose Level 96, Calcium Level 8.5, Magnesium Level 1.2L, Prealbumin [Pending], Free Thyroxine 1.16 Height (Feet): 5 Height (Inches): 7.00 Weight (Pounds): 130 General Appearance: lethargic EENT: normal ENT inspection Neck: normal alignment Cardiovascular: normal peripheral pulses, normal rate, regular rhythm Respiratory/Chest: chest wall non-tender, lungs clear, normal breath sounds Abdomen: normal bowel sounds, non tender, soft Extremities: normal inspection Edema: 1+ Arm (L), 1+ Arm (R), 1+ Leg (L), 1+ Leg (R), 1+ Pedal (L), 1+ Pedal ( R), 1+ Generalized Edema: trace edema Neurologic: responsive, motor weakness Skin: normal pigmentation, warm/dry ARTIE SAMUEL Jun 30, 2017 14:14
[2017-06-30 16:00] VITALS: BP 131/56
[2017-06-30] MEDS: Magnesium Oxide 400mg tab ORAL SCH (18:51)
[2017-06-30] MEDS ORDERED: Haloperidol 5mg/ml Inj IM PRN (19:45)
[2017-06-30 20:00] VITALS: BP 115/67
--- NOTE | 2017-06-30 22:12 | General Progress Note ---
Assessment/Plan Status: stable, progressing Assessment/Plan Dementia Agitation -haldol Im -Risperdal 2mg qhs Subjective Date patient seen: Jun 30, 2017 Neurologic/Psychiatric: Reports: anxiety, depressed, emotional problems Allergies: Coded Allergies: No Known Allergies (Unverified , 06/28/17) Objective Last 24 Hour Vital Signs Date Time Temp Pulse Resp B/P (MAP) Pulse Ox O2 Delivery O2 Flow Rate FiO2 06/30/17 20:00 96 Room Air 06/30/17 20:00 97.2 67 20 115/67 96 Room Air 06/30/17 16:00 97.9 80 20 131/56 95 06/30/17 12:00 97.6 68 20 120/60 94 06/30/17 08:00 97.7 73 19 108/44 98 Room Air 06/30/17 04:16 98 Room Air 06/30/17 04:16 97.8 72 18 140/59 98 Room Air 06/30/17 00:00 97.9 70 20 110/57 100 Room Air Intake and Output 06/29/17 06/30/17 19:00 07:00 Intake Total 680 ml Output Total 300 ml Balance 680 ml -300 ml Intake Oral 580 ml IV Total 100 ml Output Urine Total 300 ml # Bowel Movements 2 3 Laboratory Tests 06/30/17 04:40: White Blood Count 4.1L, Red Blood Count 3.64L, Hemoglobin 10.5L, Hematocrit 32.4L, Mean Corpuscular Volume 89, Mean Corpuscular Hemoglobin 28.8, Mean Corpuscular Hemoglobin Concent 32.3, Red Cell Distribution Width 14.0, Platelet Count 346, Mean Platelet Volume 6.1L, Neutrophils (%) (Auto) 50.6, Lymphocytes ( %) (Auto) 36.8, Monocytes (%) (Auto) 9.2, Eosinophils (%) (Auto) 1.9, Basophils (%) (Auto) 1.4, Sodium Level 132L, Potassium Level 4.2, Chloride Level 98, Carbon Dioxide Level 29, Anion Gap 5, Blood Urea Nitrogen 12, Creatinine 0.6, Estimat Glomerular Filtration Rate , Glucose Level 96, Calcium Level 8.5, Magnesium Level 1.2L, Prealbumin [Pending], Free Thyroxine 1.16 Height (Feet): 5 Height (Inches): 7.00 Weight (Pounds): 130 General Appearance: no apparent distress, alert, confused, agitated Neurologic: disoriented, depressed affect Oneal Schmitz M.D. Jun 30, 2017 22:12
[2017-07-01] VITALS: BP 112/57
[2017-07-01 04:00] VITALS: BP 118/69
[2017-07-01] MEDS: NovoLOG Insulin Flexpen SUBQ SCH ×2 (06:13→11:30)
[2017-07-01 07:53] VITALS: BP 125/71
[2017-07-01 08:02] LABS: BASOPHILS % (AUTO) 1.3 % (0.0-2.0); EOSINOPHILS % (AUTO) 1.7 % (0.0-3.0); HEMATOCRIT 34.9 % (37.0-47.0); HEMOGLOBIN 11.2 G/DL (12.0-16.0); LYMPHOCYTES % (AUTO) 39.3 % (20.0-45.0); MEAN CORPUSCULAR VOLUME 89 FL (80-99); MONOCYTES % (AUTO) 10.1 % (1.0-10.0); NEUTROPHILS % (AUTO) 47.6 % (45.0-75.0); PLATELET COUNT 386 K/UL (150-450); RED BLOOD COUNT 3.94 M/UL (4.20-5.40); RED CELL DISTRIBUTION WIDTH 14.1 % (11.6-14.8); WHITE BLOOD COUNT 4.1 K/UL (4.8-10.8)
[2017-07-01 08:14] LABS: ANION GAP 6 mmol/L (5-15); BLOOD UREA NITROGEN 12 mg/dL (7-18); CALCIUM 8.6 MG/DL (8.5-10.1); CARBON DIOXIDE 29 MMOL/L (21-32); CHLORIDE 96 MMOL/L (98-107); CREATININE 0.7 MG/DL (0.55-1.30); POTASSIUM 4.3 MMOL/L (3.5-5.1); SODIUM 131 MMOL/L (136-145)
[2017-07-01] MEDS: Heparin 5000 units/ml inj SUBQ SCH (08:45)
--- NOTE | 2017-07-01 09:01 | General Progress Note ---
Assessment/Plan Problem List: (1) Dementia ICD Codes: F03.90 - Unspecified dementia without behavioral disturbance SNOMED: 10772558 (2) Gravely disabled SNOMED: 577258903 (3) Diabetes mellitus ICD Codes: E11.9 - Type 2 diabetes mellitus without complications SNOMED: 88341992 (4) Gout ICD Codes: M10.9 - Gout, unspecified SNOMED: 81601873 (5) Failure to thrive SNOMED: 11472053 (6) Severe protein-calorie malnutrition ICD Codes: E43 - Unspecified severe protein-calorie malnutrition SNOMED: 947034182 Status: stable, progressing, tolerating diet Assessment/Plan ot pt diet bs control dc plan snf Subjective Constitutional: Reports: weakness Allergies: Coded Allergies: No Known Allergies (Unverified , 06/28/17) All Systems: reviewed and negative except above Subjective calm in bed Objective Last 24 Hour Vital Signs Date Time Temp Pulse Resp B/P (MAP) Pulse Ox O2 Delivery O2 Flow Rate FiO2 07/01/17 07:53 97.8 69 21 125/71 97 Room Air 07/01/17 04:00 100 Room Air 07/01/17 04:00 97.0 66 20 118/69 100 Room Air 07/01/17 00:00 97.5 64 20 112/57 95 Room Air 07/01/17 00:00 95 Room Air 06/30/17 20:00 96 Room Air 06/30/17 20:00 97.2 67 20 115/67 96 Room Air 06/30/17 16:00 97.9 80 20 131/56 95 06/30/17 12:00 97.6 68 20 120/60 94 Intake and Output 06/30/17 07/01/17 19:00 07:00 Intake Total 340 ml 240 ml Balance 340 ml 240 ml Intake Oral 240 ml 240 ml IV Total 100 ml # Voids 4 3 # Bowel Movements 2 Laboratory Tests 07/01/17 06:20: White Blood Count 4.1L, Red Blood Count 3.94L, Hemoglobin 11.2L, Hematocrit 34.9L, Mean Corpuscular Volume 89, Mean Corpuscular Hemoglobin 28.3, Mean Corpuscular Hemoglobin Concent 32.0, Red Cell Distribution Width 14.1, Platelet Count 386, Mean Platelet Volume 6.0L, Neutrophils (%) (Auto) 47.6, Lymphocytes ( %) (Auto) 39.3, Monocytes (%) (Auto) 10.1H, Eosinophils (%) (Auto) 1.7, Basophils (%) (Auto) 1.3, Sodium Level 131L, Potassium Level 4.3, Chloride Level 96L, Carbon Dioxide Level 29, Anion Gap 6, Blood Urea Nitrogen 12, Creatinine 0.7, Estimat Glomerular Filtration Rate , Glucose Level 97, Calcium Level 8.6 Height (Feet): 5 Height (Inches): 7.00 Weight (Pounds): 130 General Appearance: lethargic EENT: normal ENT inspection Neck: normal alignment Cardiovascular: normal peripheral pulses, normal rate, regular rhythm Respiratory/Chest: chest wall non-tender, lungs clear, normal breath sounds Abdomen: normal bowel sounds, non tender, soft Extremities: normal inspection Edema: no edema noted Arm (L), no edema noted Arm (R), no edema noted Leg (L), no edema noted Leg (R), no edema noted Pedal (L), no edema noted Pedal (R), no edema noted Generalized Neurologic: motor weakness Skin: normal pigmentation, warm/dry ARTIE SAMUEL Jul 01, 2017 09:01
[2017-07-01] MEDS: Magnesium Oxide 400mg tab ORAL SCH (09:46)
[2017-07-01] MEDS: Depakote 500mg tab ORAL SCH (09:46)
[2017-07-01] MEDS: Docusate 100mg cap ORAL SCH (09:46)
[2017-07-01] MEDS ORDERED: ACETAMINOPHEN325 M1 ORAL (10:35)
[2017-07-01] MEDS ORDERED: DEPAKOTE500 MG PO (10:36)
[2017-07-01] MEDS ORDERED: ARICEPT5 MG ORAL (10:43)
[2017-07-01] MEDS ORDERED: DONEPEZIL HCL5 M2 ORAL (10:43)
[2017-07-01] MEDS ORDERED: PEPCID20 MG ORAL (10:44)
[2017-07-01] MEDS ORDERED: MAGNESIUM OXID400 M1 ORAL (10:47)
[2017-07-01] MEDS ORDERED: MIRTAZAPINE7.5 MG ORAL (10:57)
[2017-07-01] MEDS ORDERED: MIRALAX17 G2 ORAL (11:00)
[2017-07-01] MEDS ORDERED: AMBIEN5 MG ORAL (11:01)
--- NOTE | 2017-07-01 11:14 | Pulmonology Progress Note ---
Assessment/Plan Assessment/Plan ASSESSMENT Functional decline mild dehydration recurrent falls protein calorie malnutrition dementia anemia DM hypokalemia hypomagnesemia R breast Ca, s/p lumpectomy Elevated TSH with normal free T 4 - subclinical hypothyroidism PLAN OF CARE MS floor gentle IVF neuro and psych eval CT head no acute IC pathology Fall precautions PT/OT/ST dietary eval, check pre-albumin calorie count BS management with Actos and SSI prn HgA1c -6.0 at goal Monitor HH, stable, with some trend up DVT/GI prophylaxis bowel regimen replace Mg CM to arrange SNF repeat thyroid panel in 4-6 weeks case discussed and evaluated by supervising physician Subjective Allergies: Coded Allergies: No Known Allergies (Unverified , 06/28/17) Subjective denies chest pain, SOB, no signs of distress confused Mg-1.2 Objective Last 24 Hour Vital Signs Date Time Temp Pulse Resp B/P (MAP) Pulse Ox O2 Delivery O2 Flow Rate FiO2 07/01/17 07:53 97.8 69 21 125/71 97 Room Air 07/01/17 04:00 100 Room Air 07/01/17 04:00 97.0 66 20 118/69 100 Room Air 07/01/17 00:00 97.5 64 20 112/57 95 Room Air 07/01/17 00:00 95 Room Air 06/30/17 20:00 96 Room Air 06/30/17 20:00 97.2 67 20 115/67 96 Room Air 06/30/17 16:00 97.9 80 20 131/56 95 06/30/17 12:00 97.6 68 20 120/60 94 Intake and Output 06/30/17 07/01/17 19:00 07:00 Intake Total 340 ml 240 ml Balance 340 ml 240 ml Intake Oral 240 ml 240 ml IV Total 100 ml # Voids 4 3 # Bowel Movements 2 Microbiology Date/Time Source Procedure Growth Status 06/28/17 12:25 Nasal Nares Influenza Types A,B Antigen (VIANNEY) - Final Complete Laboratory Tests 07/01/17 06:20: White Blood Count 4.1L, Red Blood Count 3.94L, Hemoglobin 11.2L, Hematocrit 34.9L, Mean Corpuscular Volume 89, Mean Corpuscular Hemoglobin 28.3, Mean Corpuscular Hemoglobin Concent 32.0, Red Cell Distribution Width 14.1, Platelet Count 386, Mean Platelet Volume 6.0L, Neutrophils (%) (Auto) 47.6, Lymphocytes ( %) (Auto) 39.3, Monocytes (%) (Auto) 10.1H, Eosinophils (%) (Auto) 1.7, Basophils (%) (Auto) 1.3, Sodium Level 131L, Potassium Level 4.3, Chloride Level 96L, Carbon Dioxide Level 29, Anion Gap 6, Blood Urea Nitrogen 12, Creatinine 0.7, Estimat Glomerular Filtration Rate , Glucose Level 97, Calcium Level 8.6 Current Medications Medications (Trade) Dose Ordered Sig/Priyanka Route PRN Reason Start Time Stop Time Status Last Admin Dose Admin Acetaminophen (Tylenol) 650 mg Q4H PRN ORAL fever 06/28/17 15:30 07/28/17 15:29 Al Hydroxide/Mg Hydroxide (Mylanta II) 30 ml Q6H PRN ORAL dyspepsia 06/28/17 15:30 07/28/17 15:29 Allopurinol (Allopurinol) 300 mg DAILY ORAL 06/29/17 09:00 07/29/17 08:59 07/01/17 09:46 Dextrose (Dextrose 50%) STAT PRN IV Hypoglycemia 06/28/17 20:30 07/28/17 20:29 Divalproex Sodium (Depakote) 500 mg EVERY 12 HOURS ORAL 06/29/17 21:00 07/29/17 20:59 07/01/17 09:46 Docusate Sodium (Colace) 100 mg DAILY ORAL 06/29/17 09:00 07/29/17 08:59 07/01/17 09:46 Donepezil HCl (Aricept) 5 mg QHS ORAL 07/01/17 21:00 07/31/17 20:59 Famotidine (Pepcid) 20 mg BID ORAL 06/29/17 09:00 07/29/17 08:59 07/01/17 09:46 Haloperidol Lactate (Haldol) 5 mg Q6H PRN IM Agitation 06/30/17 19:45 07/30/17 19:44 Heparin Sodium (Porcine) (Heparin 5000 units/ml) 5,000 units EVERY 12 HOURS SUBQ 06/28/17 21:00 07/28/17 20:59 06/30/17 20:36 Insulin Aspart (NovoLOG) BEFORE MEALS AND HS SUBQ 06/28/17 21:00 07/28/17 20:59 Lorazepam (Ativan 2mg/ml 1ml) 0.5 mg Q4H PRN IV For Anxiety 06/28/17 15:30 07/05/17 15:29 06/30/17 08:47 Magnesium Oxide (Mag-Ox 400mg) 400 mg BID ORAL 06/30/17 18:00 07/30/17 17:59 07/01/17 09:46 Mirtazapine (Remeron) 7.5 mg BEDTIME ORAL 07/01/17 21:00 07/31/17 20:59 Morphine Sulfate (Morphine Sulfate) 1 mg Q4H PRN IVP Severe Pain (Pain Scale 7-10) 06/28/17 15:30 07/05/17 15:29 Ondansetron HCl (Zofran) 4 mg Q6H PRN IVP Nausea & Vomiting 06/28/17 15:30 07/28/17 15:29 Pioglitazone HCl (Actos) 30 mg ACBREAKFAST ORAL 06/29/17 06:30 07/29/17 06:29 07/01/17 06:13 Polyethylene Glycol (Miralax) 17 gm HSPRN PRN ORAL Constipation 06/28/17 21:00 07/28/17 20:59 Sodium Chloride 1,000 ml @ 50 mls/hr Q20H IV 06/29/17 16:00 07/29/17 15:59 06/29/17 16:50 Zolpidem Tartrate (Ambien) 5 mg HSPRN PRN ORAL Insomnia 06/28/17 21:00 07/05/17 20:59 Mariana Mahajan NP (Vanchtein) Jul 01, 2017 11:14
[2017-07-01 11:50] VITALS: BP 130/79
[2017-07-01] MEDS ORDERED: MAG-OX 400400 MG ORAL (12:40)
--- NOTE | 2017-07-01 12:41 | Pulmonology Progress Note ---
Assessment/Plan Assessment/Plan ASSESSMENT Functional decline mild dehydration recurrent falls protein calorie malnutrition dementia anemia DM hypokalemia hypomagnesemia R breast Ca, s/p lumpectomy Elevated TSH with normal free T 4 - subclinical hypothyroidism PLAN OF CARE MS floor gentle IVF neuro and psych eval appreciated CT head no acute IC pathology Fall precautions PT/OT/ST dietary eval noted, recomm implemented calorie count BS management with Actos and SSI prn HgA1c -6.0 at goal Monitor HH, stable, with some trend up DVT/GI prophylaxis bowel regimen replace Mg CM to arrange SNF repeat thyroid panel in 4-6 weeks dc today to SNF case discussed and evaluated by supervising physician Subjective Allergies: Coded Allergies: No Known Allergies (Unverified , 06/28/17) Subjective denies chest pain, SOB, no signs of distress confused Objective Last 24 Hour Vital Signs Date Time Temp Pulse Resp B/P (MAP) Pulse Ox O2 Delivery O2 Flow Rate FiO2 07/01/17 11:50 97.9 76 22 130/79 97 Room Air 07/01/17 07:53 97.8 69 21 125/71 97 Room Air 07/01/17 04:00 100 Room Air 07/01/17 04:00 97.0 66 20 118/69 100 Room Air 07/01/17 00:00 97.5 64 20 112/57 95 Room Air 07/01/17 00:00 95 Room Air 06/30/17 20:00 96 Room Air 06/30/17 20:00 97.2 67 20 115/67 96 Room Air 06/30/17 16:00 97.9 80 20 131/56 95 Intake and Output 06/30/17 07/01/17 19:00 07:00 Intake Total 340 ml 240 ml Balance 340 ml 240 ml Intake Oral 240 ml 240 ml IV Total 100 ml # Voids 4 3 # Bowel Movements 2 Objective General Appearance: no acute distress, other - thin elderly AA female in NAD HEENT: normocephalic, atraumatic, anicteric, mucous membranes moist Respiratory/Chest: lungs clear - with moderate air exchange Cardiovascular: normal peripheral pulses, normal rate, no JVD Neurologic/Psychiatric: abnormal gait, alert, responsive Musculoskeletal: atrophy - BLE Laboratory Tests 07/01/17 06:20: White Blood Count 4.1L, Red Blood Count 3.94L, Hemoglobin 11.2L, Hematocrit 34.9L, Mean Corpuscular Volume 89, Mean Corpuscular Hemoglobin 28.3, Mean Corpuscular Hemoglobin Concent 32.0, Red Cell Distribution Width 14.1, Platelet Count 386, Mean Platelet Volume 6.0L, Neutrophils (%) (Auto) 47.6, Lymphocytes ( %) (Auto) 39.3, Monocytes (%) (Auto) 10.1H, Eosinophils (%) (Auto) 1.7, Basophils (%) (Auto) 1.3, Sodium Level 131L, Potassium Level 4.3, Chloride Level 96L, Carbon Dioxide Level 29, Anion Gap 6, Blood Urea Nitrogen 12, Creatinine 0.7, Estimat Glomerular Filtration Rate , Glucose Level 97, Calcium Level 8.6 Current Medications Medications (Trade) Dose Ordered Sig/Priyanka Route PRN Reason Start Time Stop Time Status Last Admin Dose Admin Acetaminophen (Tylenol) 650 mg Q4H PRN ORAL fever 06/28/17 15:30 07/28/17 15:29 Al Hydroxide/Mg Hydroxide (Mylanta II) 30 ml Q6H PRN ORAL dyspepsia 06/28/17 15:30 07/28/17 15:29 Allopurinol (Allopurinol) 300 mg DAILY ORAL 06/29/17 09:00 07/29/17 08:59 07/01/17 09:46 Dextrose (Dextrose 50%) STAT PRN IV Hypoglycemia 06/28/17 20:30 07/28/17 20:29 Divalproex Sodium (Depakote) 500 mg EVERY 12 HOURS ORAL 06/29/17 21:00 07/29/17 20:59 07/01/17 09:46 Docusate Sodium (Colace) 100 mg DAILY ORAL 06/29/17 09:00 07/29/17 08:59 07/01/17 09:46 Donepezil HCl (Aricept) 5 mg QHS ORAL 07/01/17 21:00 07/31/17 20:59 Famotidine (Pepcid) 20 mg BID ORAL 06/29/17 09:00 07/29/17 08:59 07/01/17 09:46 Haloperidol Lactate (Haldol) 5 mg Q6H PRN IM Agitation 06/30/17 19:45 07/30/17 19:44 Heparin Sodium (Porcine) (Heparin 5000 units/ml) 5,000 units EVERY 12 HOURS SUBQ 06/28/17 21:00 07/28/17 20:59 06/30/17 20:36 Insulin Aspart (NovoLOG) BEFORE MEALS AND HS SUBQ 06/28/17 21:00 07/28/17 20:59 Lorazepam (Ativan 2mg/ml 1ml) 0.5 mg Q4H PRN IV For Anxiety 06/28/17 15:30 07/05/17 15:29 06/30/17 08:47 Magnesium Oxide (Mag-Ox 400mg) 400 mg BID ORAL 06/30/17 18:00 07/30/17 17:59 07/01/17 09:46 Mirtazapine (Remeron) 7.5 mg BEDTIME ORAL 07/01/17 21:00 07/31/17 20:59 Morphine Sulfate (Morphine Sulfate) 1 mg Q4H PRN IVP Severe Pain (Pain Scale 7-10) 06/28/17 15:30 07/05/17 15:29 Ondansetron HCl (Zofran) 4 mg Q6H PRN IVP Nausea & Vomiting 06/28/17 15:30 07/28/17 15:29 Pioglitazone HCl (Actos) 30 mg ACBREAKFAST ORAL 06/29/17 06:30 07/29/17 06:29 07/01/17 06:13 Polyethylene Glycol (Miralax) 17 gm HSPRN PRN ORAL Constipation 06/28/17 21:00 07/28/17 20:59 Sodium Chloride 1,000 ml @ 50 mls/hr Q20H IV 06/29/17 16:00 07/29/17 15:59 06/29/17 16:50 Zolpidem Tartrate (Ambien) 5 mg HSPRN PRN ORAL Insomnia 06/28/17 21:00 07/05/17 20:59 [facility]Mariana NP Jul 01, 2017 12:41
--- NOTE | 2017-07-01 16:15 | Consultation ---
DATE OF CONSULTATION: 07/01/2016 INITIAL PSYCHIATRIC CONSULTATION CONSULTING PHYSICIAN: Tashi Trivedi M.D. REQUESTING PHYSICIAN: Andrade Calloway D.O. HISTORY OF PRESENT ILLNESS: This 81-year-old female patient with failure to thrive. This psychiatric consultation was requested by Dr. Andrade Calloway to see this patient to reduce any further decline in her cognition. This patient has weakness, failure to thrive, fall, edema, and possible knee replacement. She was brought in by her daughter at [facility] for progressive weakness and failure to thrive. Also not able to care for herself. She is confused and not talking much because of her disorganized thought process. So, there was a psychiatric consultation requested to treat her for failure to thrive and for her decline in cognition. MEDICAL HISTORY: She has history of diabetes, edema, breast cancer, and frequent falls. ALLERGIES: No known drug allergies. SOCIAL HISTORY: The patient is financially supported by [employer] and Medicare. SUBSTANCE ABUSE HISTORY: Denies drug or alcohol use. MENTAL STATUS EXAMINATION: This is an 81-year-old female, psychomotor retardation. Mood is depressed. Affect guarded and restricted. Thought process is disorganized and logical. Orientation x2. Speech is low volume and slurred. Denies auditory or visual hallucinations. Denies suicidal or homicidal thoughts, but insight and judgment is poor. Memory is 0/3, after 3 out of 3 word recall, so poor memory. Insight and judgment is poor. DIAGNOSES: Paranoid schizophrenia, rule out dementia with psychosis, rule out pseudodementia, and also rule out depression with psychotic features. PLAN: My plan for this patient is I am going to treat this patient with Remeron 7.5 mg p.o. nightly, treat depression, insomnia, but also to increase her appetite, help address her failure to thrive and help reduce that. In addition, I am also going to add Aricept 5 mg nightly to prevent any further decline in her cognition. She was seen and assessed at bedside. Dr. Andrade Calloway requested this patient be seen daily to prevent any further decline in her cognition. So I will continue to follow this patient throughout hospital course at [facility]. Chart reviewed and discussed with staff. Seen and assessed at bedside. I would like to thank Dr. Andrade Calloway for this interesting consultation. Tashi Trivedi M.D. DR: CARLYN JOB#: [id number] CC:
[2017-07-01] MEDS ORDERED: Donepezil 5mg Tab ORAL SCH (21:00)
--- NOTE | 2017-07-02 | Consultation ---
DATE OF CONSULTATION: 06/30/2017 "NOTE: POOR AUDIO" PSYCHOTHERAPY CONSULTATION PROGRESS NOTE CONSULTING PHYSICIAN: Kyara Roberts M.D. TREATING ATTENDING PHYSICIAN: Andrade Calloway D.O. HISTORY OF PRESENT ILLNESS: The patient is an 81-year-old female patient, who lives in her daughter's home according to her self report and the patient was brought in to the hospital for weakness, failure to thrive, and confusion. For these reasons, she was referred for psychotherapeutic services. The patient has a history of paranoid schizophrenia as well. This clinician assessed this patient. The patient has been very helpless, hopeless, and depressed. Denies suicidal or homicidal thoughts of ideation. The patient states that she is ready to go home in the care to her by her daughter. The patient has poor medication. She has been feeling weak and tired. She does not know how she fell. Denies suicidal or homicidal thoughts of ideation. Denies any auditory or visual hallucinations. The patient states that she has had some mood instability, however, states that this is due to feeling frustrated at times and being lonely. The patient is slightly confused and disorganized in thought process. PAST MEDICAL HISTORY: Includes a history of breast cancer and diabetes. ALLERGIES: The patient has no known drug allergies. SUBSTANCE ABUSE HISTORY: The patient denies history of alcohol use, illicit substance use, or smoking cigarettes. PSYCHIATRIC HISTORY: The patient has a history of schizophrenia. The patient has been treated with psychotropic medications in the past. SOCIAL HISTORY: The patient is an 81-year-old female patient, lives at home with her daughter, financially sustained through [email or web address]. MENTAL STATUS EXAMINATION: The patient is alert and oriented to person and place. Her mood is depressed. Affect is blunted. Thought process is poor. Thought content is slightly confused. The patient has poor attention and concentration. Poor insight, judgment, and impulse control. DIAGNOSIS: Paranoid schizophrenia. PLAN: This clinician assessed the patient and assessed the patient's mental status. Provided the patient with supportive psychotherapy, addressing the patient's feelings of helplessness to be in the hospital and depression, providing her with immediate coping skills, providing her with reality orientation, and encouraging her to articulate her needs utilizing communication skills. Continue with behavioral management. This clinician has reviewed the patient's chart and discussed the treatment with team. Kyara Roberts PsyD. DR: LORNA JOB#: [id number] CC:
--- NOTE | 2017-07-02 14:24 | General Progress Note ---
Assessment/Plan Status: stable, progressing Assessment/Plan Dementia Agitation -haldol Im -Risperdal 2mg qhs Subjective Date patient seen: Jul 01, 2017 Neurologic/Psychiatric: Reports: anxiety, depressed, emotional problems Allergies: Coded Allergies: No Known Allergies (Unverified , 06/28/17) Objective Intake and Output 07/01/17 07/02/17 19:00 07:00 Intake Total 480 ml Balance 480 ml Intake Oral 480 ml # Bowel Movements 1 Height (Feet): 5 Height (Inches): 7.00 Weight (Pounds): 130 General Appearance: no apparent distress, alert, confused, agitated Neurologic: alert, disoriented, depressed affect Oneal Schmitz M.D. Jul 02, 2017 14:24
[2017-07-04] MEDS ORDERED: ASPIR 8181 MG ORAL (18:41)
--- NOTE | 2017-07-04 18:49 | Discharge Summary ---
Discharge Summary Hospital Course Date of Admission Jun 28, 2017 at 13:00 Date of Discharge Jul 01, 2017 at 15:27 Admitting Diagnosis FAILURE TO THRIVE,GRAVELY DISABLED HPI Brittany Calzada is a 81 year old female who was admitted on Jun 28, 2017 at 13:00 for Failure To Thrive,Gravely Disabled Hospital Course dc summary #[id number] Discharge Medications New Medications: Aspirin* (Aspir 81*) 81 Mg Tablet. 81 MG ORAL DAILY, #30 TAB Magnesium Oxide (Magnesium Oxide) 400 Mg Tablet 400 MG ORAL BID, #10 TAB Continued Medications: Acetaminophen* (Acetaminophen 325MG Tablet*) 325 Mg Tablet 650 MG ORAL Q4H PRN for Fever/Headache/Mild Pain, TAB Allopurinol* (Allopurinol*) 300 Mg Tablet 300 MG ORAL DAILY, TAB Divalproex Sodium (Depakote) 500 Mg Tablet.dr 500 MG PO BID, TAB Docusate Sodium* (Colace*) 100 Mg Capsule 100 MG ORAL DAILY, CAP Donepezil Hcl* (Aricept*) 5 Mg Tablet 5 MG ORAL BEDTIME, TAB Famotidine (Famotidine) 20 Mg Tablet 20 MG ORAL TWICE A DAY, #60 TAB 0 Refills Famotidine (Pepcid) 20 Mg Tablet 20 MG ORAL BID, #7 TAB 0 Refills Metformin Hcl* (Metformin Hcl*) 1,000 Mg Tablet 1000 MG ORAL BID, TAB Mirtazapine* (Mirtazapine*) 7.5 Mg Tablet 7.5 MG ORAL BEDTIME, TAB Polyethylene Glycol 3350* (Miralax*) 17 Gm Powd.pack 17 GM ORAL DAILY, PACKET Zolpidem Tartrate* (Ambien*) 5 Mg Tablet 5 MG ORAL BEDTIME PRN for Insomnia, TAB Discontinued Medications: Magnesium Oxide (Magnesium Oxide) 400 Mg Tablet 400 MG ORAL BID, #30 TAB 0 Refills Discharge Condition Upon Discharge: stable Discharge Disposition Patient was discharged to SNF/Subacute Facility(03) Discharge Diagnoses: Keyshawn ([place]odan)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
--- NOTE | 2017-07-05 18:17 | Discharge Summary 2 SIG ---
DATE OF ADMISSION: 06/28/2017 DATE OF DISCHARGE: 07/01/2017 REASON FOR ADMISSION: 81-year-old female presented to emergency department accompanied by her daughter and granddaughter. The patient had a progressive functional decline over the past several months. She had recurrent multiple falls. She had been missing to take her medications at home. The patient lives alone. Daughter was unable to help on a routine basis since she was working. Per the daughter, the patient's living situation was dangerous since the patient was disabled and was unable to care for herself. Primary care provider believed that the patient needs placement in the prison facility because she needs 24-hour observation and care. The patient was very forgetful and had difficulty with coordination and cognition. She had a large amount of weight loss. She underwent full workup for colon cancer with a colonoscopy several months ago, which was negative. The patient with a past medical history history of diabetes, dementia, and breast CA, status post lumpectomy. Vital signs were stable. No leukocytosis. Anemic with hemoglobin- 9.9 and hematocrit -31.5 with MCV -89. Sodium -132. Stable electrolytes and renal parameters. Glucose -118. Lactic acid -2.2. Troponin negative. Urinalysis without evidence of urinary tract infection. Influenza screen test was negative. EKG revealed normal sinus rhythm with no acute ischemic changes, chest x-ray revealed no acute cardiopulmonary pathology. The patient was admitted with failure to thrive, severe protein-calorie malnutrition, dementia, and diabetes mellitus. HOSPITAL COURSE: The patient was admitted. The patient was started on IV fluids. Neurology and psychiatric evaluations were requested. Calorie count implemented. Nutritional evaluation was requested. Social Service evaluation was requested for placement. DVT and GI prophylaxis provided. Neurology seen and evaluated the patient and stated the patient had extensive ischemic cerebrovascular disease with old multiple lacunar strokes with vascular dementia. Per Neurology, the patient presented with vascular dementia, abnormal gait and failure to thrive. The patient was not capable of staying alone in her apartment. She was representing a danger to herself being unable to maintain all activities of daily living combining with cognitive loss. Neurologist recommended to place the patient in a nursing facility for 24 hours care. The patient was started on aspirin due to the history of previous stroke. Lipid panel was within normal limits. CT of the head revealed no acute intracranial pathology. Fall precautions were implemented. The patient was working with physical, occupational and speech therapists. Nutritional recommendations were implemented to improve nutritional status. Blood sugar was managed with Actos and sliding scale of insulin on as needed basis. Hemoglobin A1c- 6.0, at goal. Hemoglobin and hematocrit were closely monitored, remained stable at the baseline, and actually with some trend up. Bowel regimen instituted. Magnesium was replaced. Continue magnesium oral replacement at the prison facility. Noted elevated TSH with T4 within normal limits. The patient needs to repeat thyroid panel in four to six weeks. Psychiatrist evaluated the patient given the history of dementia, agitation, and optimized psychiatric medication regimen. human resource manager found a prison facility who was accepting the patient. The patient was stable for discharge to prison facility. FINAL DIAGNOSES: 1. 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 2. Vascular dementia. 3. Functional decline. 4. Mild dehydration. 5. Recurrent falls. 6. Severe protein-calorie malnutrition. 7. Dementia. 8. Anemia. 9. Diabetes mellitus. 10. Hypokalemia. 11. Hypomagnesemia. 12. Right breast cancer, status post lumpectomy. 13. Subclinical hypothyroidism. DISCHARGE MEDICATIONS: See medication reconciliation list. DISCHARGE INSTRUCTIONS: The patient discharged to the prison facility; follow up with medical doctor at the facility. Andrade Calloway D.O. Mariana PadillaWadsworth Hospitalmaurice N.PGuero DR: MIKE JOB#: [id number] CC: KEILA
--- NOTE | 2017-07-08 16:17 | Cardiology Report ---
APPROVED REPORT EKG Measurement Heart [id number] ID [id number] Normal sinus rhythm Normal ECG
== END 2017-07-01 15:27 | DRG 884 ==
LOC: EMR 11:44 → 4E 13:00 → EDBEDREQ 15:35 → 4E 18:34
DX: F01.51 Vascular dementia, unspecified severity, with behavioral disturbance (principal); E43 Unspecified severe protein-calorie malnutrition; I67.82 Cerebral ischemia; E11.9 Type 2 diabetes mellitus without complications; D64.9 Anemia, unspecified; E86.0 Dehydration; E83.42 Hypomagnesemia; F20.0 Paranoid schizophrenia; R62.7 Adult failure to thrive; E02 Subclinical iodine-deficiency hypothyroidism; Z68.20 Body mass index [BMI] 20.0-20.9, adult; M10.9 Gout, unspecified; R53.81 Other malaise; Z91.81 History of falling; R29.6 Repeated falls; E87.6 Hypokalemia; Z85.3 Personal history of malignant neoplasm of breast; Z90.11 Acquired absence of right breast and nipple; Z60.2 Problems related to living alone; Z86.73 Personal history of transient ischemic attack (TIA), and cerebral infarction without residual deficits; Z23 Encounter for immunization
CPT/HCPCS: 36415; 70450; 80048; 80053; 80061; 81003; 82550; 82553; 82962; 83036; 83605; 83735; 84134; 84439; 84443; 84484; 85025; 86710; 90732; 93005; 97802; 99285; J1815; J8499